=== PATIENT | female | born 2000 | race Caucasian/White ===

== ENCOUNTER 2021-08-12 01:27 | Outpatient (CLI) | payer MEDICAID, SELFPAY ==
[2021-08-12 12:39] LABS: HCT 44.2 % (36.0-46.0); MCH 28.4 pg (27.0-33.0); MCHC 32.6 % (32.0-36.0); MCV 87.2 fL (80-95); MPV 11.4 fL (8.0-11.0); Platelet Count 298 10^3/uL (130-400); RBC 5.07 10^6/uL (3.93-5.22); RDW 12.1 % (11.7-14.6); WBC 6.94 10^3/uL (4.4-10.8)
[2021-08-12 12:40] LABS: HGB 12.2 g/dL (11.2-15.7)
[2021-08-12 12:59] LABS: ALT 26 U/L (14-59); AST 20 U/L (15-37); Albumin 4.3 g/dL (3.4-5.0); Alkaline Phosphatase 89 U/L (46-116); Anion Gap 12.1 mmol/L (3-11); BUN 15 mg/dL (7-18); Bilirubin, Total 0.4 mg/dL (0.2-1.0); CO2 25.9 mmol/L (21.0-32.0); CREATININE 0.8 mg/dL (0.55-1.02); Calcium 9.7 mg/dL (8.5-10.1); Calculated LDL 154 mg/dL (<100); Chloride 102 mmol/L (98-107); Cholesterol 243 mg/dL (<200); Glucose 78 mg/dL (74-106); HDL Cholesterol 79 mg/dL (40-60); Potassium 3.8 mmol/L (3.5-5.1); Sodium 140 mmol/L (136-145); TSH (W/Ref FT4) 1.81 uIU/mL (0.36-3.74); Total Protein 8.1 g/dL (6.4-8.2); Triglyceride 51 mg/dL (<150)
== END 2021-08-12 01:28 | disposition home or self-care (01) ==
LOC: LOS 01:27
PROVIDERS: PCP Student in an Organized Health Care Education/Training Program; Visit Provider Student in an Organized Health Care Education/Training Program
DX: R53.83 Other fatigue (principal); R68.89 Other general symptoms and signs; N92.1 Excessive and frequent menstruation with irregular cycle; E78.89 Other lipoprotein metabolism disorders
CPT/HCPCS: 36415; 80053; 80061; 85027; 84443

== ENCOUNTER 2021-12-29 10:18 | Outpatient (REF) | payer MEDICAID, SELFPAY ==
--- NOTE | 2021-12-29 09:35 | PAPFT_PTH ---
PATIENT: René Rose LOC: [facility] U#:[id number] AGE/SX: 21/F ROOM: RE12/29/[address]: Elizabeth Yates MD : [id number] BED: DIS: 12/29/2021 SPEC #: [id number] RECD: 12/29/21 13:12 STATUS: ANILA REJuwan #: [id number] FIDENCIO: 12/29/21 09:[address]: Elizabeth Yates DEPT: [facility] Cytology RECD BY: Giulia Brady ENTERED: 12/29/21 13:12 SP TYPE: PAPFT OTHR DR: Mary Cerda, DO Tissues: 1 - CX/ENDOCX FOR PAP SMEARS Procedures: PAP THIN PREP/[facility] Screening Comments: [id number] (CHLAMYDIA/GC)
[2021-12-30 15:06] LABS: Chlamydia Result Negative (Negative); GC Result Negative (Negative)
== END 2021-12-29 10:19 | disposition home or self-care (01) ==
LOC: LBN 10:18
PROVIDERS: PCP Student in an Organized Health Care Education/Training Program; Visit Provider Obstetrics & Gynecology
DX: Z12.4 Encounter for screening for malignant neoplasm of cervix (principal); Z11.3 Encounter for screening for infections with a predominantly sexual mode of transmission
CPT/HCPCS: 87491; 87591; 88142

== ENCOUNTER 2022-04-12 17:51 | Outpatient (REF) | payer MEDICAID, SELFPAY ==
[2022-04-14 15:31] LABS: GC Result Negative (Negative)
[2022-04-14 15:42] LABS: Chlamydia Result Positive (Negative)
== END 2022-04-12 17:52 | disposition home or self-care (01) ==
LOC: LBN 17:51
PROVIDERS: PCP Student in an Organized Health Care Education/Training Program; Visit Provider Advanced Practice Midwife
DX: Z20.2 Contact with and (suspected) exposure to infections with a predominantly sexual mode of transmission (principal)
CPT/HCPCS: 87491; 87591

== ENCOUNTER 2022-05-05 17:41 | Outpatient (REF) | payer MEDICAID, SELFPAY ==
[2022-05-06 15:05] LABS: Chlamydia Result Negative (Negative); GC Result Negative (Negative)
== END 2022-05-05 17:42 | disposition home or self-care (01) ==
LOC: LBN 17:41
PROVIDERS: PCP Student in an Organized Health Care Education/Training Program; Visit Provider Advanced Practice Midwife
DX: N89.8 Other specified noninflammatory disorders of vagina (principal); Z20.2 Contact with and (suspected) exposure to infections with a predominantly sexual mode of transmission
CPT/HCPCS: 87491; 87591; 87480; 87510; 87660

== ENCOUNTER 2022-09-16 11:13 | Outpatient (CLI) | payer MEDICAID, SELFPAY | END 2022-09-16 11:14 | disposition home or self-care (01) | LOC: DI.CM 11:13 | PROVIDERS: PCP Student in an Organized Health Care Education/Training Program; Visit Provider Nurse Practitioner Family | CPT/HCPCS: 93010 ==

== ENCOUNTER 2022-09-16 11:29 | Emergency (ER) | payer MEDICAID, SELFPAY ==
[2022-09-16 11:31] VITALS: BP 126/83; PULSE 77; RESP 18; TEMP 37.1; O2SAT 100
[2022-09-16 11:52] LABS: Bilirubin Negative (Negative); Blood Negative (Negative); Clarity Clear (Clear); Glucose Negative (Negative); Ketones Negative (Negative); Leukocyte Esterase Negative (Negative); Nitrite Negative (Negative); Specific Gravity 1.025 (1.005-1.025); Urobilinogen 0.2 EU/dL (Up TO 0.2)
--- NOTE | 2022-09-16 12:00 | DI.RAD_ITS ---
Exam(s) XR CHEST 2V PA LATERAL EXAM: XR CHEST 2V PA LATERAL CLINICAL HISTORY: L sided chest pain, r/o acute disease TECHNIQUE: 2D digital imaging was performed of the chest. Two images were obtained. PA and lateral views were obtained. COMPARISON: No exams were available for comparison FINDINGS: MEDIASTINUM: Normal. HEART: Normal. PULMONARY VASCULATURE: Normal. LUNGS: Clear. PLEURAL SPACE: No pleural effusion or pneumothorax. BONE:Within normal limits for the patient's age. OTHER FINDINGS:Normal. IMPRESSION: No acute pulmonary findings. DATA REPOSITORY: RADIATION DOSE DELIVERED:
--- NOTE | 2022-09-16 12:00 | DI.US_ITS ---
Exam(s) US ABDOMEN LIMITED EXAM: US ABDOMEN LIMITED CLINICAL HISTORY: epigastric, RUQ/LUQ pain, r/o cholecystitis TECHNIQUE: Ultrasound abdomen performed using standard protocol. COMPARISON: No exams were available for comparison FINDINGS: PANCREAS: Normal where visualized. LIVER: Normal. Hepatopedal flow in the Portal Vein. The liver measures in 13.6 cm length. GALLBLADDER: No evidence of cholelithiasis. No evidence of wall thickening. No pericholecystic fluid identified. BILIARY SYSTEM: Common bile duct measures < 7 mm. No intrahepatic biliary ductal dilation. TERRAZAS'S SIGN: Negative. RIGHT KIDNEY: Kidney is normal in size. No evidence of renal calculi. No evidence of hydronephrosis. No renal mass or cyst identified. ASCITES: None seen. ABDOMINAL AORTA AND IVC: Visualized portions normal caliber. IMPRESSION: 1. Normal sonographic appearance of the upper abdomen. 2. Findings were discussed with the emergency department at 1:52 p.m. on 09/16/2022. DATA REPOSITORY:
--- NOTE | 2022-09-16 12:00 | RT.EKG_ITS ---
APPROVED REPORT Exam: Resting ECG Reason for Exam: chest pain Patient Location: E HR:77 bpm ECG Measurements Heart Rate 77 AXIS WA 137 P 53 QRSd 84 QRS 79 QT 360 T 48 QTc 409 Conclusion Sinus rhythm...normal P axis, V-rate 60- 99. Sinus. Normal axis. No STEMI. I have reviewed and interpreted ECG and agree with software generated interpretation.
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
[2022-09-16 13:35] LABS: Abs Immature Grans 0.01 10^3/uL (0.0-0.06); Absolute Basophil Count 0.04 10^3/uL (0.0-0.2); Absolute Eosinophil Count 0.01 10^3/uL (0.0-0.7); Absolute Lymphocyte Count 1.59 10^3/uL (1.2-3.4); Absolute Monocyte Count 0.42 10^3/uL (0.1-0.8); Absolute Neutrophil Count 5.51 10^3/uL (1.2-6.7); Basophils % 0.5; Eosinophils % 0.1; HGB 14.9 g/dL (11.2-15.7); Immature Grans % 0.1; MCHC 33.1 % (32.0-36.0); MCV 88 fL (80-95); MPV 10.4 fL (8.0-11.0); Monocytes % 5.5; Neutrophils % 72.8; Platelet Count 291 10^3/uL (130-400); RBC 5.13 10^6/uL (3.93-5.22); RDW 12.9 % (11.7-14.6); RDW-SD 41.8 fL; WBC 7.58 10^3/uL (4.4-10.8)
[2022-09-16] MEDS: Famotidine 20 MG/2 ML VIAL IVP (13:35)
[2022-09-16] MEDS: Sucralfate 1 GM TAB PO (13:35)
[2022-09-16] MEDS: Ondansetron 4 MG/2 ML VIAL IVP (13:35)
[2022-09-16 13:55] LABS: ALT 25 U/L (14-59); AST 23 U/L (15-37); Albumin 4.2 g/dL (3.4-5.0); Alkaline Phosphatase 110 U/L (46-116); Anion Gap 7.6 mmol/L (3-11); BUN 14 mg/dL (7-18); Bilirubin, Total 0.3 mg/dL (0.2-1.0); CO2 30.4 mmol/L (21.0-32.0); CREATININE 0.9 mg/dL (0.55-1.02); Calcium 9.9 mg/dL (8.5-10.1); Chloride 99 mmol/L (98-107); Glucose 83 mg/dL (74-106); Lipase 119 U/L (73-393); Magnesium 1.8 mg/dL (1.8-2.4); Potassium 3.9 mmol/L (3.5-5.1); Sodium 137 mmol/L (136-145); Total Protein 8.6 g/dL (6.4-8.2); Troponin I < 50 ng/L (<or=60)
[2022-09-16 14:11] LABS: D-Dimer 266 ng/mlFEU (<500)
--- NOTE | 2022-09-16 14:50 | NUR.NOTE ---
Nursing Note: [facility] follow [facility] next week for epigastrium pain. Kylie, ED
[2022-09-16 15:04] VITALS: BP 106/86; PULSE 86; RESP 12; O2SAT 98
== END 2022-09-16 15:13 | disposition home or self-care (01) ==
PROVIDERS: Emergency Provider Physician Assistant; PCP Student in an Organized Health Care Education/Training Program
DX: R10.12 Left upper quadrant pain (principal); R10.13 Epigastric pain; R07.9 Chest pain, unspecified; G89.29 Other chronic pain
CPT/HCPCS: 80053; 81025; 83690; 93005; 96374; 96375; 99285; 71046; 76705; 81003; 83735; 84484; 85025; 85379; 93010; 99284; J2405

== ENCOUNTER 2022-09-16 11:37 | Outpatient (REF) | payer MEDICAID, SELFPAY | END 2022-09-16 11:38 | disposition home or self-care (01) | LOC: LBN 11:37 | PROVIDERS: PCP Student in an Organized Health Care Education/Training Program; Visit Provider Nurse Practitioner Family | DX: N39.0 Urinary tract infection, site not specified (principal) | CPT/HCPCS: 87086 ==

== ENCOUNTER 2023-02-06 16:13 | Outpatient (REF) | payer MEDICAID, SELFPAY ==
--- NOTE | 2023-02-06 15:15 | PAPFT_PTH ---
PATIENT: René Rose LOC: [facility] U#:[id number] AGE/SX: 22/F ROOM: RE02/06/[address]: Geraldine Nolen CNM : 2000 BED: DIS: 02/06/2023 SPEC #: [id number] RECD: 02/06/23 17:23 STATUS: ANILA REQ #: [id number] FIDENCIO: 02/06/23 15:[address]: Geraldine Nolen DEPT: [facility] Cytology RECD BY: Giulia Brady ENTERED: 02/06/23 17:23 SP TYPE: PAPFT OTHR DR: Mary Cerda, Tissues: 1 - CX/ENDOCX FOR PAP SMEARS Procedures: PAP THIN PREP/[facility] Screening Comments: [id number] (CHLAMYDIA/GC)
[2023-02-07 12:37] LABS: Chlamydia Result Negative (Negative); GC Result Negative (Negative)
== END 2023-02-06 16:14 | disposition home or self-care (01) ==
LOC: LBN 16:13
PROVIDERS: PCP Student in an Organized Health Care Education/Training Program; Visit Provider Advanced Practice Midwife
DX: Z11.3 Encounter for screening for infections with a predominantly sexual mode of transmission (principal); Z12.4 Encounter for screening for malignant neoplasm of cervix; R87.612 Low grade squamous intraepithelial lesion on cytologic smear of cervix (LGSIL)
CPT/HCPCS: 87491; 87591; 88142

== ENCOUNTER 2023-06-27 15:55 | Outpatient (CLI) | payer MEDICAID, SELFPAY ==
--- OUTSIDE RECORDS SUMMARY | 2023-06-27 15:58 | XMS_ITS | Continuity of Care Document ---
Author Name Unknown Organization [facility] Address [address] [place] [address] Encounter NCTY_ME Date(s): 06/02/23 - 06/02/[address] [id number] [place] Encounter Diagnosis Urinary tract infection(Discharge Diagnosis) - 06/02/23 Discharge Disposition: Home or Self Care Attending Physician: Winston Serna MD Admitting Physician: Winston Serna MD Allergies, Adverse Reactions, Alerts Substance Reaction Severity Status amoxicillin-clavulanate Unknown Acti ve penicillins Unknown Active Assessment and Plan Diagnostic Tests Pending * Urine Culture 06/02/23 Functional Status 06/02/23 Recent Travel History No recent travel Other exposure to Infectious Disease Non e Immunizations Given and Recorded Vaccine Date Status Refusal Reason influenza virus vaccine, live 10/31/18 Recorded influenza virus vaccine, live 10/11/16 Recorded influenza virus vaccine, live 10/07/15 Recorded influenza virus vaccine, live 10/07/14 Recorded influenza virus vaccine, live 10/07/13 Recorded influenza virus vaccine, live 11/07/12 Recorded influenza virus vaccine, live 09/26/11 Recorded influenza virus vaccine, live 09/22/10 Recorded influenza virus vaccine, live 09/24/09 Recorded hepatitis A pediatric vaccine 10/11/17 Recorded hepatitis A pediatric vaccine 10/11/16 Recorded influenza virus vaccine, inactivated 10/11/17 Leif rded influenza virus vaccine, inactivated 09/09/04 Leif rded meningococcal conjugate vaccine 10/11/16 Recorded meningococcal conjugate vaccine 12/05/11 Recorded HPV, unspecified formulation 04/11/12 Recorded HPV, unspecified formulation 12/05/11 Recorded HPV, unspecified formulation 09/26/11 Recorded tetanus/diphth/pertuss (Tdap) adult/adol 09/26/11 Recorded varicella virus vaccine 12/18/07 Recorded varicella virus vaccine 12/10/01 Recorded diphtheria/pertussis, acellular/tetanus 11/10/05 R ecorded diphtheria/pertussis, acellular/tetanus 09/10/02 R ecorded diphtheria/pertussis, acellular/tetanus 03/08/01 R ecorded diphtheria/pertussis, acellular/tetanus 01/09/01 R ecorded diphtheria/pertussis, acellular/tetanus 00 R ecorded poliovirus vaccine, inactivated 11/10/05 Recorded poliovirus vaccine, inactivated 03/12/02 Recorded poliovirus vaccine, inactivated 01/09/01 Recorded poliovirus vaccine, inactivated 00 Recorded measles/mumps/rubella virus vaccine 09/09/04 Recor ded measles/mumps/rubella virus vaccine 09/11/01 Recor ded haemophilus b conjugate (PRP-T) vaccine 03/12/02 R ecorded haemophilus b conjugate (PRP-T) vaccine 03/08/01 R ecorded haemophilus b conjugate (PRP-T) vaccine 01/09/01 R ecorded haemophilus b conjugate (PRP-T) vaccine 00 R ecorded pneumococcal 7-valent vaccine 12/10/01 Recorded pneumococcal 7-valent vaccine 06/05/01 Recorded pneumococcal 7-valent vaccine 03/08/01 Recorded pneumococcal 7-valent vaccine 00 Recorded hepatitis B pediatric vaccine 06/05/01 Recorded hepatitis B pediatric vaccine 00 Recorded hepatitis B pediatric vaccine 00 Recorded Medications cephalexin 500 mg oral capsule 500 mg = 1 cap, Oral, QID, X 7 days, # 28 cap, 0 Refill(s), 06/09/23 21:09:00 EDT, Pharmacy: [id number], 154, cm, 06/02/23 19:59:00 EDT, Height/Length Dosing, 52.1, kg, 06/02/23 19:59:00 EDT, Weight Dosing Start Date: 06/02/23 Stop Date: 06/09/23 Status: Ordered fluconazole 200 mg oral tablet 200 mg = 1 tab, Oral, Daily, X 5 days, # 5 tab, 0 Refill(s), 06/07/23 21:10:00 EDT, Pharmacy: [id number], 154, cm, 06/02/23 19:59:00 EDT, Height/Length Dosing, 52.1, kg, 06/02/23 19:59:00 EDT, Weight Dosing Start Date: 06/02/23 Stop Date: 06/07/23 Status: Ordered Pyridium 200 mg oral tablet 200 mg = 1 tab, Oral, TID(PC), X 2 days, # 6 tab, 0 Refill(s), 06/04/23 21:09:00 EDT, Pharmacy: [facility], 154, cm, 06/02/23 19:59:00 EDT, Height/Length Dosing, 52.1, kg, 06/02/23 19:59:00EDT, Weight Dosing Start Date: 06/02/23 Stop Date: 06/04/23 Status: Ordered Results Laboratory List Name Date Test Urine Qual 06/02/23 Urinalysis with Micro if Indicated and C ulture if Indicated 06/02/23 Urinalysis Microscopic 06/02/23 Most recent to oldest [Reference Range]: 1 UA Color Yellow (06/02/23 8:06 PM) UA WBC [0-3] 25-50 *ABN* (06/02/23 8:06 PM) UA Urobilinogen Normal (06/02/23 8:06 PM) UA Bili [Negative] Negative (06/02/23 8:06 PM) UA Ketones Negative (06/02/23 8:06 PM) UA RBC [0-2] 3-5 (06/02/23 8:06 PM) UA Leuk Est 1+ *ABN* (06/02/23 8:06 PM) UA Nitrite Negative (06/02/23 8:06 PM) UA Glucose [Negative] Negative (06/02/23 8:06 PM) UA Bacteria Few /HPF *ABN* (06/02/23 8:06 PM) UA Protein 1+ *ABN* (06/02/23 8:06 PM) UA Blood 1+ *ABN* (06/02/23 8:06 PM) UA Mucous None Seen /HPF (06/02/23 8:06 PM) UA Spec Grav 1.025 *NA* (06/02/23 8:06 PM) UA Squam Epithelial [None Seen] Few *ABN* (06/02/23 8:06 PM) UA pH 6.0 *NA* (06/02/23 8:06 PM) UA Appear Clear (06/02/23 8:06 PM) UA Culture Ind?. Indicated (06/02/23 8:06 PM) U hCG Ql Negative (06/02/23 8:06 PM) Vital Signs Most recent to oldest [Reference Range]: 1 Temperature Temporal Artery [36-38 Deg C ] 37.3 Deg C (06/02/23 7:47 PM) Peripheral Pulse Rate [60-100 bpm] 71 bp m (06/02/23 7:47 PM) Blood Pressure [90-140/60-90 mmHg] 133/7 9mmHg (06/02/23 7:47 PM) Weight Dosing 52.10 kg (06/02/23 7:59 PM) Weight Estimated 52.10 kg (06/02/23 7:47 PM) Height/Length Dosing 154.000 cm (06/02/23 7:59 PM) Height/Length Estimated 154.000 cm (06/02/23 7:47 PM) Social History Social History Type Response Tobacco Never tobacco user T obacco Use:. Sex Female Hospital Discharge Instructions Patient Education 06/02/2023 20:12:36 Urinary Tract Infection, Adult Urinary Tract Infection, Adult A urinary tract infection (UTI) is an infection of any part of the urinary tract. The urinary tractincludes the kidneys, ureters, bladder, and urethra. These organs make, store, and get rid of urinein the body. An upper UTI affects the ureters and kidneys. A lower UTI affects the bladder and urethra. What are the causes? Most urinary tract infections are caused by bacteria in your genital area around your urethra, where urine leaves your body. These bacteria grow and cause inflammation of your urinary tract. What increases the risk? You are more likely to develop this condition if: ??? You have a urinary catheter that stays in place. ??? You are not able to control when you urinate or have a bowel movement (incontinence). ??? You are female and you: ??? Use a spermicide or diaphragm for control. ??? Have low estrogen levels. ??? Are . ??? You have certain genes that increase your risk. ??? You are sexually active. ??? You take antibiotic medicines. ??? You have a condition that causes your flow of urine to slow down, such as: ??? An enlarged prostate, if you are male. ??? Blockage in your urethra. ??? A kidney stone. ??? A nerve condition that affects your bladder control (neurogenic bladder). ??? Not getting enough to drink, or not urinating often. ??? You have certain medical conditions, such as: ??? Diabetes. ??? A weak disease-fighting system (immunesystem). ??? Sickle cell disease. ??? Gout. ??? Spinal cord injury. What are the signs or symptoms? Symptoms of this condition include: ??? Needing to urinate right away (urgency). ??? Frequent urination. This may include small amounts of urine each time you urinate. ??? Pain or burning with urination. ??? Blood in the urine. ??? Urine that smells bad or unusual. ??? Trouble urinating. ??? Cloudy urine. ??? Vaginal discharge, if you are female. ??? Pain in the abdomen or the lower back. You may also have: ??? Vomiting or a decreased appetite. ??? Confusion. ??? Irritability or tiredness. ??? A fever or chills. ??? Diarrhea. The first symptom in older adults may be confusion. In some cases, they may not have any symptoms until the infection has worsened. How is this diagnosed? This condition is diagnosed based on your medical history and a physical exam. You may also have other tests, including: ??? Urine tests. ??? Blood tests. ??? Tests for STIs (sexually transmitted infections). If you have had more than one UTI, a cystoscopy or imaging studies may be done to determine the cause of the infections. How is this treated? Treatment for this condition includes: ??? Antibiotic medicine. ??? Ogvd-hdi-aadmjpi medicines to treat discomfort. ??? Drinking enough water to stay hydrated. If you have frequent infections or have other conditions such as a kidney stone, you may need to see a health care provider who specializes in the urinary tract (urologist). In rare cases, urinary tract infections can cause sepsis. Sepsis is a life- threatening condition that occurs when the body responds to an infection. Sepsis is treated in the hospital with IV antibiotics, fluids, and other medicines. Follow these instructions at home: Medicines ??? Take epsn-zqg-emcknan and prescription medicines only as told by your health care provider. ??? If you were prescribed an antibiotic medicine, take it as told by your health care provider. Donot stop using the antibiotic even if you start to feel better. General instructions ??? Make sure you: ??? Empty your bladder often and completely. Do not hold urine for long periods of time. ??? Empty your bladder after sex. ??? Wipe from front to back after urinating or having a bowel movement if you are female. Use each tissue only one time when you wipe. ??? Drink enough fluid to keep your urine pale yellow. ??? Keep all follow-up visits. This is important. Contact a health care provider if: ??? Your symptoms do not get better after 1???2 days. ??? Your symptoms go away and then return. Get help right away if: ??? You have severe pain in your back or your lower abdomen. ??? You have a fever or chills. ??? You have nausea or vomiting. Summary ??? A urinary tract infection (UTI) is an infection of any part of the urinary tract, which includes the kidneys, ureters, bladder, and urethra. ??? Most urinary tract infections are caused by bacteria in your genital area. ??? Treatment for this condition often includes antibiotic medicines. ??? If you were prescribed an antibiotic medicine, take it as told by your health care provider. Donot stop using the antibiotic even if you start to feel better. ??? Keep all follow-up visits. This is important. This information is not intended to replace advice given to you by your health care provider. Make sure you discuss any questions you have with your health care provider. Document Revised: 06/18/2021 Document Reviewed: 06/18/2021 [employer] Patient Education ?? 2022 [employer] Follow Up Care 06/02/2023 19:46:59 With:Follow up with primary care provider Address:Unknown When:1 month Physician Emergency department Note * Grady Phipps MD: PERFORM Event Display: ED Note Physician Authored Date: [id number] OFELIA ZHONG :2000 Age:22 years Sex:Female Visit Date:06/02/2023 Basic Information Time Seen: Grady Phipps MD / 06/02/2023 20:09 Chief Complaint This morning having symptoms of uti, painful urination iwth frequency. Hx of uti with yeast infections with antibiotics History Of Present Illness: 20-year-old female previously healthy presents with dysuria??for couple of days. ??Took Azo couple weeks ago thought that the symptoms went away but??feels like her symptoms have returned. ??Has minimal suprapubic discomfort otherwise no flank pain or fevers or any other symptoms. Review of Systems: Dysuria Physical Exam Vitals & Measurements T:??37.3?C ??(Temporal Artery)?? HR:??71??(Peripheral)?? BP:??133/79?? SpO2:??100%?? HT:??154.000??cm?? WT:??52.10??kg??(Estimated)?? Pain Score:??6?? O2 Therapy:??Room air?? Patient clinically in no acute distress no significant reproducible abdominal pain other than a dull ache with deep palpation??in the suprapubic region Medical Decision Makin-year-old female presents with dysuria. ??Vitals are stable. ??UA shows evidence of infection.?? test is negative. ??Started on Keflex. ??Prescribed??Pyridium as well. ??She also states she always gets a yeast infection with??antibiotic use and was started on fluconazole per patient requ est.?? Discharged stable condition with primary care follow-up??and return precautions to the ED. Procedure No Qualifying Data Assessment/Plan 1.??Urinary tract infection??N39.0 Ordered: cephalexin 500 mg oral capsule, 500 mg = 1 cap, Oral, QID, X 7 days, # 28 cap, 0 Refill(s), 06/09/23 21:09:00 EDT, Pharmacy: [facility], 154, cm, 06/02/23 19:59:00 EDT, Height/Length Dosing, 52.1, kg, 06/02/23 19:59:00 EDT, Weight Dosing fluconazole 200 mg oral tablet, 200 mg = 1 tab, Oral, Daily, X 5 days, # 5 tab, 0 Refill(s), 06/07/23 21:10:00 EDT, Pharmacy: [facility], 154, cm, 06/02/23 19:59:00 EDT, Height/Length Dosing, 52.1, kg, 06/02/23 19:59:00 EDT, Weight Dosing Pyridium 200 mg oral tablet, 200 mg = 1 tab, Oral, TID(PC), X 2 days, # 6 tab, 0 Refill(s), 06/04/23 21:09:00 EDT, Pharmacy: [facility], 154, cm, 06/02/23 19:59:00 EDT, Height/Length Dosing, 52.1, kg, 06/02/23 19:59:00 EDT, Weight Dosing Discharge Patient, 06/02/23 21:09:00 EDT, Home Independently, Constant Indicator ?? Orders: Urine Culture, Urine, Stat collect, ST - Stat, 06/02/23 20:06:45 EDT, Once, Nurse collect, Collected, 06/02/23 20:06:45 EDT, Print Label, [id number] Patient Education Urinary Tract Infection, Adult Follow Up With When Contact Information Follow up with primary care provider Within 1 month Additional Instructions: Medication Reconciliation New Prescription cephalexin (cephalexin 500 mg oral capsule)1 Capsules Oral (given by mouth) 4 times a day for 7 Days. Refills: 0. ?? fluconazole (fluconazole 200 mg oral tablet)1 tab Oral (given by mouth) every day for 5 Days. Refills: 0. ?? phenazopyridine (Pyridium 200 mg oral tablet)1 tab Oral (given by mouth) 3 times a day after meals for 2 Days. Refills: 0. Problem List/Past Medical History Ongoing No qualifying data Historical No qualifying data Medication Administration Given cephalexin, 500 mg, Oral Allergies amoxicillin-clavulanate penicillins Social History Electronic Cigarette/Vaping Electronic Cigarette Use: Never. Tobacco Never tobacco user Tobacco Use:. Lab Results Testing?? LATEST RESULTS?? U hCG Ql?? 06/02/23 20:06?? Negative? UA Macroscopic?? LATEST RESULTS?? UA Color?? 06/02/23 20:06?? Yellow?? UA Appear?? 06/02/23 20:06?? Clear?? UA Glucose?? 06/02/23 20:06?? Negative?? UA Bili?? 06/02/23 20:06?? Negative?? UA Ketones?? 06/02/23 20:06?? Negative?? UA Spec Grav?? 06/02/23 20:06?? 1.025?? UA Blood?? 06/02/23 20:06?? 1+ Abnormal?? UA pH?? 06/02/23 20:06?? 6.0?? UA Protein?? 06/02/23 20:06?? 1+ Abnormal?? UA Urobilinogen?? 06/02/23 20:06?? Normal?? UA Nitrite?? 06/02/23 20:06?? Negative?? UA Leuk Est?? 06/02/23 20:06?? 1+ Abnormal?? UA Culture Ind?.?? 06/02/23 20:06?? Indicated? UA Microscopic?? LATEST RESULTS?? UA WBC?? 06/02/23 20:06?? 25-50 Abnormal?? UA RBC?? 06/02/23 20:06?? 3-5?? UA Squam Epithelial?? 06/02/23 20:06?? Few Abnormal?? UA Mucous?? 06/02/23 20:06?? None Seen?? UA Bacteria?? 06/02/23 20:06?? Few Abnormal? Electronically Signed on 06/02/23 09:13 PM Grady Phipps MD Emergency department Discharge instructions * Grady Phipps MD: PERFORM Event Display: ED Discharge Information Authored Date: [id number] OFELIA ZHONG :2000 Age:22 years Sex:Female Visit Date:06/02/2023 Discharge Instructions We would like to thank you for allowing us to assist you with your healthcare needs. The following includes patient education materials and information regarding your injury/illness. Diagnosis from Today's Visit Urinary tract infection Discharge Vitals Temperature??(Temporal Artery) 99.1 ??F (37.3 ??C) Heart Rate??(Peripheral) 71 Blood Pressure?? 133/79?? Height?? 60.63 in (154.000 cm) Weight??(Estimated) 114.88 lb (52.10 kg) Allergies amoxicillin-clavulanate penicillins What to Do Next You Need to Schedule the Following Appointments Follow Up with??Follow up with primary care provider When:??Within 1 month You were treated today on an emergency basis; it may be zamora to contact your primary care provider to notify them of your visit today. You may have been referred to your regular doctor or a specialist, please follow up as instructed. If your condition worsens or you can't get in to see the doctor, contact the Emergency Department. Medications What How Much When Why Instructions Next Dose New cephalexin (cephalexin 500 mg oral capsule) 1 Capsules Oral (given by mouth) 4 times a day Urinary tract infection Duration: 7 Days Pickup at [facility] New fluconazole (fluconazole 200 mg oral tablet) 1 tab Oral (given by mouth) Every day Urinary tract infection Duration: 5 Days Pickup at [facility] New phenazopyridine (Pyridium 200 mg oral tablet) 1 tab Oral (given by mouth) 3 times a day after meals Urinary tract infection Duration: 2 Days Pickup at [facility] Pharmacy Information [facility]: [address], [place] [id number] [phone] Education Materials Urinary Tract Infection, Adult A urinary tract infection (UTI) is an infection of any part of the urinary tract. The urinary tractincludes the kidneys, ureters, bladder, and urethra. These organs make, store, and get rid of urinein the body. An upper UTI affects the ureters and kidneys. A lower UTI affects the bladder and urethra. What are the causes? Most urinary tract infections are caused by bacteria in your genital area around your urethra, where urine leaves your body. These bacteria grow and cause inflammation of your urinary tract. What increases the risk? You are more likely to develop this condition if: ? You have a urinary catheter that stays in place. ? You are not able to control when you urinate or have a bowel movement (incontinence). ? You are female and you: ? Use a spermicide or diaphragm for control. ? Have low estrogen levels. ? Are . ? You have certain genes that increase your risk. ? You are sexually active. ? You take antibiotic medicines. ? You have a condition that causes your flow of urine to slow down, such as: ? An enlarged prostate, if you are male. ? Blockage in your urethra. ? A kidney stone. ? A nerve condition that affects your bladder control (neurogenic bladder). ? Not getting enough to drink, or not urinating often. ? You have certain medical conditions, such as: ? Diabetes. ? A weak disease-fighting system (immunesystem). ? Sickle cell disease. ? Gout. ? Spinal cord injury. What are the signs or symptoms? Symptoms of this condition include: ? Needing to urinate right away (urgency). ? Frequent urination. This may include small amounts of urine each time you urinate. ? Pain or burning with urination. ? Blood in the urine. ? Urine that smells bad or unusual. ? Trouble urinating. ? Cloudy urine. ? Vaginal discharge, if you are female. ? Pain in the abdomen or the lower back. You may also have: ? Vomiting or a decreased appetite. ? Confusion. ? Irritability or tiredness. ? A fever or chills. ? Diarrhea. The first symptom in older adults may be confusion. In some cases, they may not have any symptoms until the infection has worsened. How is this diagnosed? This condition is diagnosed based on your medical history and a physical exam. You may also have other tests, including: ? Urine tests. ? Blood tests. ? Tests for STIs (sexually transmitted infections). If you have had more than one UTI, a cystoscopy or imaging studies may be done to determine the cause of the infections. How is this treated? Treatment for this condition includes: ? Antibiotic medicine. ? Nkkt-yld-jqucptz medicines to treat discomfort. ? Drinking enough water to stay hydrated. If you have frequent infections or have other conditions such as a kidney stone, you may need to see a health care provider who specializes in the urinary tract (urologist). In rare cases, urinary tract infections can cause sepsis. Sepsis is a life- threatening condition that occurs when the body responds to an infection. Sepsis is treated in the hospital with IV antibiotics, fluids, and other medicines. Follow these instructions at home: Medicines ? Take mlux-nua-llgsfxr and prescription medicines only as told by your health care provider. ? If you were prescribed an antibiotic medicine, take it as told by your health care provider. Do notstop using the antibiotic even if you start to feel better. General instructions ? Make sure you: ? Empty your bladder often and completely. Do not hold urine for long periods of time. ? Empty your bladder after sex. ? Wipe from front to back after urinating or having a bowel movement if you are female. Use each tissue only one time when you wipe. ? Drink enough fluid to keep your urine pale yellow. ? Keep all follow-up visits. This is important. Contact a health care provider if: ? Your symptoms do not get better after 1???2 days. ? Your symptoms go away and then return. Get help right away if: ? You have severe pain in your back or your lower abdomen. ? You have a fever or chills. ? You have nausea or vomiting. Summary ? A urinary tract infection (UTI) is an infection of any part of the urinary tract, which includes the kidneys, ureters, bladder, and urethra. ? Most urinary tract infections are caused by bacteria in your genital area. ? Treatment for this condition often includes antibiotic medicines. ? If you were prescribed an antibiotic medicine, take it as told by your health care provider. Do notstop using the antibiotic even if you start to feel better. ? Keep all follow-up visits. This is important. This information is not intended to replace advice given to you by your health care provider. Make sure you discuss any questions you have with your health care provider. Document Revised: 06/18/2021 Document Reviewed: 06/18/2021 [email or web address] Patient Education ?? 2022 [employer]. Tests Performed Medications and Immunizations Administered Given cephalexin, 500 mg, Oral Lab Test Name Test Result Date/Time U hCG Ql NEGATIVE 06/02/2023 20:06 EDT UA Color YELLOW. 06/02/2023 20:06 EDT UA Appear CLEAR. 06/02/2023 20:06 EDT UA Glucose NEGATIVE 06/02/2023 20:06 EDT UA Bili NEGATIVE 06/02/2023 20:06 EDT UA Ketones NEGATIVE 06/02/2023 20:06 EDT UA Spec Grav 1.025 06/02/2023 20:06 EDT UA Blood 1+ 06/02/2023 20:06 EDT UA pH 6.0 06/02/2023 20:06 EDT UA Protein 1+ 06/02/2023 20:06 EDT UA Urobilinogen 0.2 Uro 06/02/2023 20:06 EDT UA Nitrite NEGATIVE 06/02/2023 20:06 EDT UA Leuk Est 1+ 06/02/2023 20:06 EDT UA Culture Ind?. Indicated 06/02/2023 20:06 EDT UA WBC 25-50 06/02/2023 20:06 EDT UA RBC 3-5 06/02/2023 20:06 EDT UA Squam Epithelial Few 06/02/2023 20:06 EDT UA Mucous None Seen 06/02/2023 20:06 EDT UA Bacteria Few 06/02/2023 20:06 EDT Patient/Farm Crew Leader Signature Patient Name:OEFLIA ZHONG I have received this information and my questions have been answered. Patient/Farm Crew Leader Name: Patient/Farm Crew Leader Signature: Relationship to Patient: Witness Name/Signature: Date: Electronically Signed on: 06/02/2023 21:12 EDTSigned by:[facility] Emergency department Note * Anu Valero H: PERFORM Event Display: ED Notes Authored Date: [id number] Patient Care team information Care Team Personnel Name: Erica Stuart RN Position: Nurse Member Role: ED Nurse Name: Grady Phipps MD Position: Physician Member Role: ED Physician Address: Address: [facility] [address], [place] [address] Care Team Related Persons Name: CHANG ZHONG
[2023-06-27 17:04] LABS: HCG Quant, Pregnancy 31198 mIU/mL (1-3)
== END 2023-06-27 15:56 | disposition home or self-care (01) ==
LOC: LBO 15:57
PROVIDERS: PCP Student in an Organized Health Care Education/Training Program; Visit Provider Advanced Practice Midwife
DX: N94.19 Other specified dyspareunia (principal); Z32.01 Encounter for pregnancy test, result positive
CPT/HCPCS: 36415; 84702

== ENCOUNTER 2023-06-27 16:00 | Outpatient (REF) | payer MEDICAID, SELFPAY ==
[2023-06-29 13:32] LABS: Chlamydia Result Negative (Negative); GC Result Negative (Negative)
== END 2023-06-27 16:01 | disposition home or self-care (01) ==
LOC: LBN 16:00
PROVIDERS: PCP Student in an Organized Health Care Education/Training Program; Visit Provider Advanced Practice Midwife
DX: N94.19 Other specified dyspareunia (principal); N76.0 Acute vaginitis; Z11.3 Encounter for screening for infections with a predominantly sexual mode of transmission
CPT/HCPCS: 87491; 87591; 87480; 87510; 87660

== ENCOUNTER 2023-08-11 16:02 | Outpatient (REF) | payer MEDICAID, SELFPAY ==
[2023-08-13 12:21] LABS: Chlamydia Result Negative (Negative); GC Result Negative (Negative)
== END 2023-08-11 16:03 | disposition home or self-care (01) ==
LOC: LBN 16:02
PROVIDERS: PCP Student in an Organized Health Care Education/Training Program; Visit Provider Advanced Practice Midwife
DX: N89.8 Other specified noninflammatory disorders of vagina (principal); Z11.3 Encounter for screening for infections with a predominantly sexual mode of transmission
CPT/HCPCS: 87491; 87591; 87480; 87510; 87660

== ENCOUNTER 2023-08-14 12:53 | Outpatient (CLI) | payer MEDICAID, SELFPAY ==
[2023-08-14 14:47] LABS: Abs Immature Grans 0.03 10^3/uL (0.0-0.06); Absolute Basophil Count 0.04 10^3/uL (0.0-0.2); Absolute Eosinophil Count 0.03 10^3/uL (0.0-0.7); Absolute Lymphocyte Count 2.31 10^3/uL (1.2-3.4); Absolute Monocyte Count 0.44 10^3/uL (0.1-0.8); Absolute Neutrophil Count 6.12 10^3/uL (1.2-6.7); Basophils % 0.4; Eosinophils % 0.3; HCT 36.5 % (36.0-46.0); HGB 12.3 g/dL (11.2-15.7); Immature Grans % 0.3; Lymphocytes % 25.8; MCH 30.1 pg (27.0-33.0); MCHC 33.7 % (32.0-36.0); MCV 90 fL (80-95); MPV 10.4 fL (8.0-11.0); Monocytes % 4.9; Neutrophils % 68.3; Platelet Count 273 10^3/uL (130-400); RBC 4.08 10^6/uL (3.93-5.22); RDW 11.9 % (11.7-14.6); RDW-SD 38.5 fL; WBC 8.97 10^3/uL (4.4-10.8)
[2023-08-16 10:40] LABS: Varicella IgG Antibody Positive (See Note)
== END 2023-08-14 12:54 | disposition home or self-care (01) ==
LOC: LBO 12:54
PROVIDERS: Advanced Practice Midwife; PCP Student in an Organized Health Care Education/Training Program; Visit Provider Obstetrics & Gynecology
DX: O02.1 Missed abortion (principal); Z01.818 Encounter for other preprocedural examination; Z01.812 Encounter for preprocedural laboratory examination; Z11.59 Encounter for screening for other viral diseases
CPT/HCPCS: 36415; 86787; 86850; 86900; 86901; 85025

== ENCOUNTER 2023-08-15 11:58 | Day surgery (SDC) | payer MEDICAID, SELFPAY ==
[2023-08-15] VITALS (12 sets, daily range): BP systolic 92–114; BP diastolic 49–71; PULSE 50–72; RESP 12–18; TEMP 36.4–37; O2SAT 96–100; BMI 24.8
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
[2023-08-15] MEDS: Lactated Ringers 1,000 ML 125 ML IV (12:55)
[2023-08-15] MEDS: DOXYCYCLINE 100 MG in Normal Saline 100 ML IVPB (13:03)
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
--- NOTE | 2023-08-15 13:33 | POCSPONT_PTH ---
PATIENT: René Rose LOC: [facility] U#:[id number] AGE/SX: 22/F ROOM: RE08/15/[address]: Patricia Jackson DO : 2000 BED: DIS: 08/15/2023 SPEC #: [id number] RECD: 08/15/23 16:18 STATUS: ANILA REQ #: [id number] FIDENCIO: 08/15/23 13:[address]: Patricia Jackson DEPT: Surgical Specimen RECD BY: Giulia Brady ENTERED: 08/15/23 16:19 SP TYPE: POCSPONT BRETT DR: Mary Cerda DO Tissues: 1 - ,SPONTANEOUS Procedures: GROSS AND MICRO LEVEL 4 Comments: [id number]
--- NOTE | 2023-08-15 13:49 | ROE_ITS ---
Date of service: 08/15/23 Time of Service: 13:49 Operative Note Operative Note DATE OF PROCEDURE: 08/15/23 PRE-OP DIAGNOSIS: Missed POST-OP DIAGNOSIS: same PROCEDURE: Dilation and curettage with suction SURGEON: Patricia Jackson ANESTHESIA TYPE: General LMA/ETT Refer to Anesthesia Record ESTIMATED BLOOD LOSS: 200 PATHOLOGY: other (Products of conception) COMPLICATIONS: None Patient was transported to: PACU Indications: Missed Findings: Moderate products of conception Procedure Description: Patient is a 22-year-old primigravida [facility] She was seen for her initial OB intake with lack of heart tones at approximate 11 weeks. Bedside ultrasound confirmed a gestation measuring approximately 8 weeks with no cardiac activity. This is consistent with miscarriage. Risk benefits and alternatives of watchful waiting versus medical management versus surgical intervention were all explained to the patient in full informed consent was obtained for dilation and curettage with suction at the patient's request. She received 100 mg of doxycycline IV at the beginning of her procedure. She was taken the operating suite with an IV running where she is placed in the dorsal supine position. LMA used for administration of general anesthesia without difficulty. She was then placed in the modified dorsolithotomy position and prepped and draped in the usual sterile fashion. A straight catheterization was performed for approximately 75 cc of clear yellow urine. Exam under anesthesia revealed a uterus that was midline and mobile and approximately 8 weeks in gestation. At this point speculum was inserted into th e vaginal vault and an Allis clamp used to grasp the anterior lip of the cervix. Cervical os dilated to the point that an 8 [place] suction curette could be passed without difficulty. With gentle suction curettage, the uterus was emptied of its contents. There is noted to be a fair portion of tissue at the cervical os which was gently teased out with a ring forcep. Section suction pass was performed and sharp curettage was performed to feel the coarse cry of the uterus in all 4 quadrants. Final suction curette was performed for scant tissue and the uterus was firm and involuted post procedure. Elastocrepe clamp and speculum had been removed. Patient awoke from anesthesia was taken the recovery room in stable condition. Complications: None apparent findings: Moderate products of conception Pathology:Products of conception for examination
[2023-08-15] MEDS: fentaNYL 100 MCG/2 ML VIAL IVP (14:27)
--- NOTE | 2023-08-15 15:09 | W.ANESPOSTOP ---
Postoperative Evaluation Date, Time and Location Date Performed: 08/15/23 Time Performed: 15:09 Patient Location: Day Surgery Unit Vital Signs Most Recent Imported Vital Signs: Most Recent Vital Signs Temp Pulse Resp BP Pulse Ox 36.7 C 58 L 16 104/53 L 100 08/15/23 14:45 08/15/23 14:45 08/15/23 14:45 08/15/23 14:45 08/15/23 14:45 Pain Score Most Recent Pain Score: Most Recent Pain Score Pain Level 2 08/15/23 14:45 Assessment Mental Status: Awake (Alert & Oriented to Patient Baseline) Airway and Respiratory Function: Patent airway with normal (patient baseline) respiratory exam Cardiovascular Function: Hemodynamically Stable Hydration Status: Adequately Hydrated Nausea & Vomiting: No Nausea or Vomiting Pain: Pain is tolerable per patient Peripheral Nerve Block: Patient did not receive a nerve block
--- NOTE | 2023-08-15 15:30 | W.PM.PROGNOT ---
Date of Service Date of service: 08/15/23 Time of Service: 15:30 Subjective Subjective Interval history since last seen: Patient seen and examined in the immediate postoperative period. She did receive 25 mics of fentanyl for crampiness which has resolved her discomfort. She had questions regarding her procedure, and her future fertility. All were answered. She will be seen back in the office Objective Last Vital Signs Temp 98.1 F 08/15/23 14:45 Pulse 58 L 08/15/23 14:45 Resp 16 08/15/23 14:45 BP 104/53 L 08/15/23 14:45 Pulse Ox 100 08/15/23 14:45 Time Spent with Patient Time Spent with Patient: <25 minutes Time was spent: preparing to see the patient(eg.review tests) and counseling the patient
== END 2023-08-15 16:30 | disposition home or self-care (01) ==
PROVIDERS: PCP Student in an Organized Health Care Education/Training Program; Visit Provider Obstetrics & Gynecology
PROC: (CPT 59841; principal; 2023-08-15 13:30)
DX: O02.1 Missed abortion (principal); Z3A.08 8 weeks gestation of pregnancy
CPT/HCPCS: 59820; 88305; J1100; J1885; J2001; J2250; J2405; J3010

== ENCOUNTER 2023-09-28 16:10 | Emergency (ER) | payer MEDICAID, SELFPAY ==
[2023-09-28 16:13] VITALS: BP 108/84; PULSE 79; RESP 18; TEMP 37.4; O2SAT 99
[2023-09-28 17:00] LABS: Abs Immature Grans 0.02 10^3/uL (0.0-0.06); Absolute Basophil Count 0.05 10^3/uL (0.0-0.2); Absolute Eosinophil Count 0.06 10^3/uL (0.0-0.7); Absolute Monocyte Count 0.62 10^3/uL (0.1-0.8); Absolute Neutrophil Count 5.81 10^3/uL (1.2-6.7); Basophils % 0.5; Eosinophils % 0.6; HCT 41.3 % (36.0-46.0); HGB 13.5 g/dL (11.2-15.7); Immature Grans % 0.2; Lymphocytes % 35.4; MCH 29.3 pg (27.0-33.0); MCHC 32.7 % (32.0-36.0); MCV 90 fL (80-95); MPV 10.1 fL (8.0-11.0); Monocytes % 6.1; Neutrophils % 57.2; Platelet Count 344 10^3/uL (130-400); RDW 11.9 % (11.7-14.6); RDW-SD 38.8 fL; WBC 10.16 10^3/uL (4.4-10.8)
[2023-09-28 17:09] LABS: Bilirubin Negative (Negative); Blood Large (Negative); Clarity Clear (Clear); Glucose Negative (Negative); Ketones Negative (Negative); Leukocyte Esterase Negative (Negative); Nitrite Negative (Negative); Specific Gravity 1.015 (1.005-1.025); Urobilinogen 0.2 mg/dL (Up to 0.2); pH 8.5 (5-8)
[2023-09-28 17:22] LABS: Anion Gap 7.4 mmol/L (3-11); BUN 17 mg/dL (7-18); CO2 29.6 mmol/L (21.0-32.0); CREATININE 0.9 mg/dL (0.55-1.02); Calcium 9.2 mg/dL (8.5-10.1); Chloride 101 mmol/L (98-107); Estimated GFR 92.12 (mL/min/1.73m2); Glucose 103 mg/dL (74-106); HCG Quant, Pregnancy 2 mIU/mL (1-3); Sodium 138 mmol/L (136-145)
[2023-09-28 17:22] LABS: Bacteria Few HPF (Negative); Epithelial Cells Rare HPF (Negative)
[2023-09-28 17:23] LABS: C & S Indicated? Yes; Casts Negative LPF (Negative); Crystals Negative HPF (Negative); Mucus Negative (Negative)
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
== END 2023-09-28 18:38 | disposition home or self-care (01) ==
PROVIDERS: Emergency Provider Physician Assistant; PCP Student in an Organized Health Care Education/Training Program
DX: N92.1 Excessive and frequent menstruation with irregular cycle (principal)
CPT/HCPCS: 80048; 81025; 86850; 86900; 86901; 87077; 96360; 99284; 81003; 81015; 84702; 85025; 87086; 87186; 99283

== ENCOUNTER 2024-11-28 15:17 | Outpatient (REF) | payer MEDICAID, SELFPAY ==
[2024-11-29 12:42] LABS: Chlamydia Result Negative (Negative); GC Result Negative (Negative)
== END 2024-11-28 15:18 | disposition home or self-care (01) ==
LOC: LBN 15:17
PROVIDERS: PCP Student in an Organized Health Care Education/Training Program; Visit Provider Obstetrics & Gynecology
DX: N89.8 Other specified noninflammatory disorders of vagina (principal); Z01.419 Encounter for gynecological examination (general) (routine) without abnormal findings
CPT/HCPCS: 87491; 87591